=== PATIENT | female | born 1970 | race Caucasian/White ===

== ENCOUNTER 2020-09-12 10:08 | Inpatient (IN) ==
--- NOTE | 2020-09-12 10:27 | Emergency Department Note ---
History of Present Illness General Chief Complaint: Mental Health Evaluation Stated Complaint: OVERDOSE Time Seen by Provider: 09/12/20 10:12 History of Present Illness Provider Complaint: + intentional overdose Time: 07:00 Timing confirmed by: + family member and + EMS HPI Narrative: 50-year-old female presents emergency department for overdose. Patient states she tried to overdose to try to kill her self. She tried to overdose at 7 AM. Patient tried to take in 2 entire bottles of her Topamax 25 mg and ziprasidone 20 mg. The one bottle of Topamax 25 mg was filled on July 30, 2020 had 90 tablets in the second bottle had 30 tablets and was filled on June 02 2020. She also tried to overdose by taking her ziprasidone 20 mg which was filled on August 27 and originally had 30 tablets. Patient states she is not sure how many tablets were in any of the pill bottles. Patient states she tried to overdose because she has been feeling depressed because she has been under a lot of stress due to her financial troubles. Patient states she is a gambling addict and has been gambling again and is under a lot of financial stress. Patient denies any access to any guns or firearms. She denies any drugs or alcohol. She denies take any Tylenol or salicylates. She denies any chance of being . Mother is at bedside states the patient has a long history of depression and suicide attempts the last one being when she was 15 and tried to overdose. Patient does have a psychiatrist but has never had any inpatient treatment for psychiatric conditions. Substance Ingested topimax: Strength of Substance: 25 Time of Ingestion: 07:00 ziprasidone: Strength of Substance: 20 Time of Ingestion: 07:00 Intent: suicide attempt Context: Intentional Overdose: depressed, prior psychiatric issues and financial issues Associated symptoms: depression Home Medications Medication Instructions Recorded Confirmed Type dextroamphetamine-amphetamine 20 mg PO TID 06/24/19 09/12/20 History levothyroxine [Synthroid] 75 mcg PO DAILYBB 09/12/20 09/12/20 History lithium carbonate 150 mg PO BID 09/12/20 09/12/20 History lithium carbonate 600 mg PO BID 09/12/20 09/12/20 History metformin 1,000 mg PO BID 09/12/20 09/12/20 History topiramate [Topamax] 25 mg PO DAILY 09/12/20 09/12/20 History ziprasidone HCl [Geodon] 20 mg PO DAILY 09/12/20 09/12/20 History Allergies Allergy/AdvReac Type Severity Reaction Status Date / Time No Known Allergies Allergy Unverified 09/12/20 11:27 Past Med/Surg History Medical History Exercise-induced asthma No pertinent family history Severe depression Tracheal stenosis Surgical History No pertinent past surgical history Social History Smoking Status: Never smoker marital status: Single Current Living Situation: Alone current occupational status: unemployed Feels Safe at Home: No Review of Systems A total of 10 systems reviewed and were otherwise negative Physical Exam Physical Exam: Physical Exam GENERAL: She is oriented to person, place, and time. She appears well-developed and well-nourished. She does not appear distressed. HENT: Exam performed. -Head: Normocephalic and atraumatic. -Right Ear: External ear normal. No mastoid tenderness. -Left Ear: External ear normal. No mastoid tenderness. -Mouth/Throat: The oropharynx is clear and moist. No trismus in the jaw. No dental abscesses or uvula swelling. No oropharyngeal exudate or tonsillar abscesses. EYES: Conjunctivae and EOM are normal. Pupils are equal, round, and reactive to light. Right eye exhibits no discharge. Left eye exhibits no discharge. No scleral icterus. NECK: Normal range of motion. Neck supple. No JVD present. No spinous process tenderness present. No carotid bruit present. No rigidity. No tracheal deviation and normal range of motion present. No Brudzinski's sign and no Kernig's sign noted. CV: Normal rate, regular rhythm, normal heart sounds and intact distal pulses. There is no peripheral edema. Palpable radial pulses bue. PULM/CHEST: Effort normal and breath sounds normal. No respiratory distress. No stridor. She has no wheezes. She has no rales. -Chest Wall: She exhibits no tenderness. ABD: The abdomen is soft. Bowel sounds are normal. She has no distension. No mass is present. There is no tenderness. There is no rebound, no guarding, no Terrell's sign and no tenderness at McBurney's point. Rovsig negative MUSC/SKEL: Normal range of motion. There is no peripheral edema, tenderness or deformity. LYMPH: No cervical adenopathy. NEURO: She is alert and oriented to person, place, and time. She has normal strength. No cranial nerve deficit or sensory deficit. Coordination and gait normal. GCS eye subscore is 4. GCS verbal subscore is 5. GCS motor subscore is 6. Cerebellar tests wnl. SKIN: Skin is warm and dry. She is not diaphoretic. PSYCH: Patient is depressed and suicidal. Course Course 1012: The patient was evaluated in room A4. A complete history and physical exam was performed 1129: Spoke with Kylah from [facility]. She recommends checking magnesium level and states the patient could experience seizures. Seizure precautions placed. 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 1204: Vital signs stable. Magnesium Tylenol and salicylate within normal limits. Potassium will be low place. Patient placed in observation at this time. 1744: Vital signs stable. Patient accepted to 3 S. Medical Decision Making Laboratory Data Result diagrams: 09/12/20 10:38 09/12/20 10:38 ECG Data Indication: toxicologic Rate (beats per minute): 69 Rhythm: normal sinus Findings: no ST depression, no ST elevation and no prolonged QT MDM Narrative Observation note Indication: Psych eval/placement Patient, with severe depsression was first seen at 1012 hrs and the observation time began at 1204 hrs and was necessary in order to have psych evaluation completed . Upon re-evaluation, 5 hours and 40 minutes of observation revealed that the patient should be admitted to . Disposition date and time September 12, 2020 1744. Impression & Plan Suicide attempt, Overdose, Acute hypokalemia Discharge Plan Visit Data Chief Complaint: Mental Health Evaluation Stated Complaint: OVERDOSE ED Provider: Frandy Downs Discharge Problem: Suicide attempt, Overdose, Acute hypokalemia Forms Stand Alone Forms: [facility], Suicide Prevention Resources Prescriptions Prescriptions: No Action dextroamphetamine-amphetamine 20 mg tablet 20 mg PO TID RF: 0 topiramate [Topamax] 25 mg tablet 25 mg PO DAILY RF: 0 lithium carbonate 150 mg capsule 150 mg PO BID RF: 0 levothyroxine [Synthroid] 75 mcg tablet 75 mcg PO DAILYBB RF: 0 ziprasidone HCl [Geodon] 20 mg capsule 20 mg PO DAILY RF: 0 lithium carbonate 600 mg capsule 600 mg PO BID RF: 0 metformin 1,000 mg tablet 1,000 mg PO BID RF: 0 Referrals Referrals: Rita Astorga PA-C [Primary Care Provider] - Discharge Problem: Overdose Qualifiers: Encounter type: initial encounter Injury intent: undetermined intent Qualified Code(s): T50.904A - Poisoning by unspecified drugs, medicaments and biological substances, undetermined, initial encounter
[2020-09-12 10:35] LABS: Appearance Urine Clear (Clear); Bilirubin Urine Negative (Negative); Blood Urine Negative (Negative); Color Urine Yellow; Glucose Urine UA Negative (Negative); Ketones Urine Negative (Negative); Leukocyte Esterase Urine Negative (Negative); Nitrite Urine Negative (Negative); Protein Urine Negative (Negative); Specific Gravity Urine 1.007 (1.000-1.030); Urobilinogen Urine Negative (Negative); pH Urine >= 9.0 (4.5-7.5)
[2020-09-12 10:44] LABS: Pregnancy Test, Urine Negative (Negative)
[2020-09-12 10:57] LABS: Basophils # (auto) 0.04 K/uL (0-0.2); Basophils % (auto) 0.7 %; Eosinophils # (auto) 0.11 K/uL (0-0.5); Eosinophils % (auto) 1.8 %; Hematocrit (blood only) 30.5 % (37-47); Hemoglobin 9.7 g/dL (12.0-16.0); Immature Granulocytes # (auto) 0.01 K/uL (0.00-0.02); Immature Granulocytes % (auto) 0.2 %; Lymphocytes # (auto) 1.62 K/uL (1.2-3.4); Mean Corpuscular Hemoglobin 27.7 pg (25-34); Mean Corpuscular Hgb Conc 31.8 g/dL (32-36); Mean Corpuscular Volume 87.1 fL (80-100); Mean Platelet Volume 9.9 fL (7.4-10.4); Monocytes # (auto) 0.69 K/uL (0.11-0.59); Monocytes % (auto) 11.5 %; Neutrophils # (auto) 3.53 K/uL (1.4-6.5); Neutrophils % (auto) 58.8 %; Platelet Count 319 K/uL (130-400); RDW Coefficient of Variation 16.7 % (11.5-14.5); RDW Standard Deviation 53.5 fL (36.4-46.3)
[2020-09-12 11:00] LABS: Amphetamines+Metham, Urine Pos (Neg); Barbiturates, Urine Neg (Neg); Benzodiazepine, Urine Neg (Neg); Cocaine, Urine Neg (Neg); MDMA (Ecstacy), Urine Neg (Neg); Methadone, Urine Neg (Neg); Opiate, Urine Neg (Neg); Phencyclidine, Urine Neg (Neg)
[2020-09-12 11:16] LABS: Albumin Level 2.8 gm/dl (3.4-5.0); BUN Creatinine Ratio 17.8 (10-20); Calcium 8.1 mg/dl (8.5-10.1); Creatinine Clr Calc Pharmacy 116.4 ml/min; Est GFR (African American) 125.4 ml/min; Est GFR (Non-African American) 108.2 ml/min; Potassium 3.3 mmol/L (3.5-5.1)
[2020-09-12 11:27] LABS: Albumin Globulin Ratio 0.8 (0.9-2); Bilirubin,Total 0.3 mg/dl (0.2-1); Globulin 3.7 gm/dl (2.5-4.0); Thyroid Stimulating Hormone 5.52 uIu/ml (0.300-4.500); Total Protein 6.5 gm/dl (6.4-8.2)
[2020-09-12 11:39] LABS: Acetaminophen < 2 ug/ml (10-30); Salicylate < 1.7 mg/dl (2.8-20)
[2020-09-12 11:40] LABS: T4 Free Thyroxine 1.06 ng/dl (0.8-1.6)
[2020-09-12] MEDS ORDERED: POTASSIUM CHLORIDE 10 MEQ TABCR PO STA (12:05)
[2020-09-12] MEDS ORDERED: BISMUTH SUBSALICYLATE LIQD 236 ML PO PRN (18:51)
[2020-09-12] MEDS ORDERED: ALUMINUM/MAGNESIUM SUSP 30 ML UDC PO PRN (18:51)
[2020-09-12] MEDS ORDERED: MAGNESIUM HYDROXIDE SUSP 30 ML UDC PO PRN (18:51)
[2020-09-12] MEDS ORDERED: SODIUM CHLORIDE 0.65% NA SOLN 45 ML (OCEAN) PRN (18:51)
[2020-09-12] MEDS ORDERED: ACETAMINOPHEN 325 MG TAB PO PRN (18:51)
[2020-09-12] MEDS ORDERED: hydrOXYzine HCl 25 MG TAB PO PRN (18:51)
[2020-09-12] MEDS ORDERED: diazePAM 5 MG TABLET PO PRN (18:55)
--- NOTE | 2020-09-12 21:07 | Electrocardiogram Report ---
Test Reason : Blood Pressure : / mmHG Vent. Rate : 069 BPM Atrial Rate : 069 BPM P-R Int : 170 ms QRS Dur : 090 ms QT Int : 454 ms P-R-T Axes : 044 -05 021 degrees QTc Int : 486 ms Normal sinus rhythm Moderate voltage criteria for LVH, may be normal variant Nonspecific T wave abnormality Prolonged QT Abnormal ECG No previous ECGs available Confirmed by Tai Colin ([id number]) on 09/12/2020 9:06:42 PM Referred By: REFERRED SELF Confirmed By:Isaak Colin
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
[2020-09-13] MEDS: LEVOTHYROXINE SODIUM 75 MCG TABLET PO SCH (12:39)
[2020-09-13] MEDS: LITHIUM CARBONATE 300 MG TAB PO SCH ×4 (12:40→21:10)
[2020-09-13] MEDS: metFORMIN HCL 500 MG TAB PO SCH (17:32)
[2020-09-13] MEDS ORDERED: LITHIUM CARBONATE 300 MG TAB PO SCH ×2 (21:00)
[2020-09-13] MEDS: hydrOXYzine HCl 25 MG TAB PO PRN (21:12)
[2020-09-14] MEDS: hydrOXYzine HCl 25 MG TAB PO PRN (02:36)
[2020-09-14] MEDS ORDERED: LEVOTHYROXINE SODIUM 75 MCG TABLET PO SCH (08:00)
[2020-09-14] MEDS: LEVOTHYROXINE SODIUM 75 MCG TABLET PO SCH (08:06)
[2020-09-14] MEDS: LITHIUM CARBONATE 300 MG TAB PO SCH ×4 (08:39→20:36)
[2020-09-14] MEDS: metFORMIN HCL 500 MG TAB PO SCH ×2 (08:40→17:27)
[2020-09-14 11:31] LABS: Amphetamine Urine, Confirm 2060 ng/mL (<250); Methamphetamine, Ur Confirm NEGATIVE ng/mL (<250)
--- NOTE | 2020-09-14 13:48 | Psychiatric Progress Note ---
Date of Service September 14, 2020 Impression / Recommendations Impression This is a 50-year-old woman presenting following a suicide attempt. Although the patient carries a diagnosis of bipolar disorder, her history as well as current status are not indicative of such. I believe that this patient has a mood disorder with significant mood lability that was worsened by amphetamine use. Diagnosis for now will be MDD. Patient does have a history of treatment resistance, thus justifying uses of medications such as antipsychotics as well as lithium and other mood stabilizers. (1) Major depressive disorder with current active episode: The patient was admitted to the [facility] ([facility] unit) on every 15 minute checks (behavioral with suicide precautions for safety. The patient will participate in group, recreational, and milieu therapies and will be offered additional individual and family sessions as clinically appropriate. 09/14/2020atient to continue on lithium 700 mg p.o. twice daily. Plan to do a level in a couple of days. 09/13/2020atient's Adderall, Topamax, Geodon will be discontinued. Patient will be restarted on lithium as it has been shown to be effective for preventing suicide. Will reconsider use of antidepressant as patient begins to stabilize. Inventory Assets Strengths: Supportive family Needs: Insight Risk Factors Assessment Male: No : No Do You Have Access To A Gun?: No Health Problems: No Mental Health Diagnoses: Yes Substance Use Disorders: No Previous Attempt: Yes Family History of Suicide: No Previous Psychiatric Hospitalization: No Hopelessness: No Protective Factors Assessment : No Responsible for Young Children: No Employed: No Stable Relationships: Yes Supportive Family: Yes Interval History Chief Complaint "I'm tired". Review of Systems Sleep Information Total Hours of Sleep: 7.5 Sleep Comments: Pt verbalized she did not sleep well and that Vistaril PRN was ineffective. Patient had appeared to sleep well though before and after PRN administration. Meal Information Percent Meal Consumed - Breakfast: 85 Percent Meal Consumed - Lunch: 95 Percent Meal Consumed - Dinner: 75 Subjective Subjective Patient was seen & assessed and interval progress reviewed with treatment team nursing and social work Patient reports feeling tired today, which she attributes to Adderall withdrawal. Denies side effects of lithium medication. IS able to eat meals without issue. Does report some difficulty sleeping last night. Overall interacting appropriately with peers. I spent 30 minutes with the patient, 50% of which was dedicated to counselling and coordination of care. Physical Exam Psychiatric Orientation: alert and oriented x 3 Apperance: appropriately groomed Eye Contact: + fair eye contact Motor Behavior: no abnormal motor movements Speech: normal rate/rhythm/volume of speech Affect: + depressed affect and + tearful affect Mood: + depressed mood Thought Process: linear/logical thought process Thought Content: reality based without delusions Suicidal Thoughts: + reports suicidal thoughts Homicidal Thoughts: + reports homicidal thoughts Hallucinations: no auditory hallucinations and no gustatory hallucinations Cognition: remote memory grossly intact Estimated Intelligence: consistent with education level Insight: + poor insight Judgement: + fair judgement Vital Signs (Past 24 Hours) Last Vital Signs Temp 36.4 C 09/14/20 07:07 Pulse 88 09/14/20 07:07 Resp 16 09/14/20 07:07 BP 121/75 09/14/20 07:07 Pulse Ox 100 09/12/20 19:51 Results & Data ([facility]) Laboratory Results Laboratory Results - last 24 hr 09/12/20 09/12/20 10:20 20:33 POC Ur Test Cancelled U Amphetamines Confirm 2059 H U Methamphetamin Confrm NEGATIVE Drug Screen Comment SEE NOTE Current Inpatient Medications Current Inpatient Medications: Current Inpatient Medications Acetaminophen (Acetaminophen 325 Mg Tab) 650 mg PO Q4H PRN PRN Reason: Headache or Minor Fever Stop: 10/12/20 18:50 Al Hydrox/Mg Hydrox/Simethicone (Aluminum/Magnesium Susp 30 Ml Udc) 30 ml PO Q4H PRN PRN Reason: GI Upset Stop: 10/12/20 18:50 Bismuth Subsalicylate (Bismuth Subsalicylate Liqd 236 Ml) 15 ml PO PRN PRN PRN Reason: Loose Stool Stop: 10/12/20 18:50 Hydroxyzine HCl (Hydroxyzine Hcl 25 Mg Tab) 50 mg PO HSZ PRN PRN Reason: Insomnia Stop: 10/12/20 18:50 Last Admin: 09/14/20 02:36 Dose: 50 mg Documented by: Hydroxyzine HCl (Hydroxyzine Hcl 25 Mg Tab) 25 mg PO Q4H PRN PRN Reason: Anxiety Stop: 10/12/20 18:50 Levothyroxine Sodium (Levothyroxine Sodium 75 Mcg Tablet) 75 mcg PO DAILYBB ROCKY Stop: 10/13/20 10:59 Last Admin: 09/14/20 08:06 Dose: 75 mcg Documented by: Avimor Carbonate (Avimor Carbonate 300 Mg Tab) 150 mg PO BID ROCKY Stop: 10/13/20 10:59 Last Admin: 09/14/20 08:39 Dose: 150 mg Documented by: Avimor Carbonate (Avimor Carbonate 300 Mg Tab) 600 mg PO BID ROCKY Stop: 10/13/20 10:59 Last Admin: 09/14/20 08:39 Dose: 600 mg Documented by: Magnesium Hydroxide (Magnesium Hydroxide Susp 30 Ml Udc) 30 ml PO DAILY PRN PRN Reason: Constipation Stop: 10/12/20 18:50 Metformin HCl (Metformin Hcl 500 Mg Tab) 1,000 mg PO [facility]IDM [facility] Stop: 10/13/20 17:44 Last Admin: 09/14/20 08:40 Dose: 1,000 mg Documented by: Sodium Chloride (Sodium Chloride 0.65% Na Soln 45 Ml ([place])) 1 - 2 sprays NA PRN PRN PRN Reason: Nasal Dryness/Congestion Stop: 10/12/20 18:50 Mental Health & Subst Abuse Tx Therapist Name of Therapist: None Computer Aided Design Technician Name of Computer Aided Design Technician: Adrián Hi Post Discharge Appointments Primary Care Physician Name Of Family Doctor: None Contact Information Discharge Discharge Address: [address] [place] [address] (1) Major depressive disorder with current active episode Major depression recurrence: recurrent Major depression episode severity: severe Psychotic features: without psychotic features Qualified Code(s): F33.2 - Major depressive disorder, recurrent severe without psychotic features
[2020-09-15] MEDS: hydrOXYzine HCl 25 MG TAB PO PRN ×2 (00:44→02:52)
[2020-09-15] MEDS: LEVOTHYROXINE SODIUM 75 MCG TABLET PO SCH (08:50)
[2020-09-15] MEDS: LITHIUM CARBONATE 300 MG TAB PO SCH ×4 (08:50→20:39)
[2020-09-15] MEDS: metFORMIN HCL 500 MG TAB PO SCH ×2 (08:50→17:13)
--- NOTE | 2020-09-15 09:56 | Psychiatric Progress Note ---
Date of Service September 15, 2020 Impression / Recommendations Impression This is a 50-year-old woman presenting following a suicide attempt. Although the patient carries a diagnosis of bipolar disorder, her history as well as current status are not indicative of such. I believe that this patient has a mood disorder with significant mood lability that was worsened by amphetamine use. Diagnosis for now will be MDD. Patient does have a history of treatment resistance, thus justifying uses of medications such as antipsychotics as well as lithium and other mood stabilizers. (1) Major depressive disorder with current active episode: The patient was admitted to the [facility] ([facility] mental health unit) on every 15 minute checks (behavioral with suicide precautions for safety. The patient will participate in group, recreational, and milieu therapies and will be offered additional individual and family sessions as clinically appropriate. 09/15/2020atient continues on lithium 750 p.o. twice daily. We will plan to do a level tomorrow morning. 09/14/2020atient to continue on lithium 750 mg p.o. twice daily. Plan to do a level in a couple of days. 09/13/2020atient's Adderall, Topamax, Geodon will be discontinued. Patient will be restarted on lithium as it has been shown to be effective for preventing suicide. Will reconsider use of antidepressant as patient begins to stabilize. Inventory Assets Strengths: Supportive family Needs: Insight Risk Factors Assessment Male: No : No Do You Have Access To A Gun?: No Health Problems: No Mental Health Diagnoses: Yes Substance Use Disorders: No Previous Attempt: Yes Family History of Suicide: No Previous Psychiatric Hospitalization: No Hopelessness: No Protective Factors Assessment : No Responsible for Young Children: No Employed: No Stable Relationships: Yes Supportive Family: Yes Interval History Chief Complaint "I did not get any sleep because you did not give any medication to sleep. I need my Adderall.". Review of Systems Sleep Information Total Hours of Sleep: 5.5 Sleep Comments: Pt requested/received PRN Vistaril x 2 last night. She verbalized Vistaril was ineffective for her but appeared to sleep well prior to and shortly after receiving the PRN medication. Please see nurse's note. Meal Information Percent Meal Consumed - Breakfast: 75 Percent Meal Consumed - Lunch: 95 Percent Meal Consumed - Dinner: 70 Subjective Subjective Patient was seen & assessed and interval progress reviewed with treatment team nursing and social work. Patient continues to state that she requires Adderall. She will often state that it will help her sleep as well as prevent her from having restless leg syndrome. She was explained that none of her rationale makes any sense, and that in fact Adderall is known to cause insomnia as well as worsen restless leg syndrome. Patient with very poor insight regarding Adderall administration, continues to be irritable when discussing. Blood pressure is high today, will continue to monitor. Is attending groups and eating meals without issue. Requested medications for sleeping tonight. Was informed that she would be provided with as needed Seroquel. I spent 30 minutes with the patient, 50% of which was dedicated to counselling and coordination of care. Physical Exam Psychiatric Orientation: alert and oriented x 3 Apperance: appropriately groomed Eye Contact: + fair eye contact Motor Behavior: no abnormal motor movements Speech: normal rate/rhythm/volume of speech Affect: + depressed affect and + tearful affect Mood: + depressed mood Thought Process: linear/logical thought process Thought Content: reality based without delusions Suicidal Thoughts: + reports suicidal thoughts Homicidal Thoughts: + reports homicidal thoughts Hallucinations: no auditory hallucinations and no gustatory hallucinations Cognition: remote memory grossly intact Estimated Intelligence: consistent with education level Insight: + poor insight Judgement: + fair judgement Vital Signs (Past 24 Hours) Last Vital Signs Temp 36.7 C 09/15/20 06:40 Pulse 84 09/15/20 06:42 Resp 16 09/15/20 06:40 BP 150/99 H 09/15/20 06:42 Pulse Ox 100 09/12/20 19:51 Results & Data ([facility]) Laboratory Results Laboratory Results - last 24 hr 09/12/20 09/12/20 10:20 20:33 POC Ur Test Cancelled U Amphetamines Confirm 2059 H U Methamphetamin Confrm NEGATIVE Drug Screen Comment SEE NOTE Current Inpatient Medications Current Inpatient Medications: Current Inpatient Medications Acetaminophen (Acetaminophen 325 Mg Tab) 650 mg PO Q4H PRN PRN Reason: Headache or Minor Fever Stop: 10/12/20 18:50 Al Hydrox/Mg Hydrox/Simethicone (Aluminum/Magnesium Susp 30 Ml Udc) 30 ml PO Q4H PRN PRN Reason: GI Upset Stop: 10/12/20 18:50 Bismuth Subsalicylate (Bismuth Subsalicylate Liqd 236 Ml) 15 ml PO PRN PRN PRN Reason: Loose Stool Stop: 10/12/20 18:50 Hydroxyzine HCl (Hydroxyzine Hcl 25 Mg Tab) 50 mg PO HSZ PRN PRN Reason: Insomnia Stop: 10/12/20 18:50 Last Admin: 09/15/20 02:52 Dose: 50 mg Documented by: Hydroxyzine HCl (Hydroxyzine Hcl 25 Mg Tab) 25 mg PO Q4H PRN PRN Reason: Anxiety Stop: 10/12/20 18:50 Levothyroxine Sodium (Levothyroxine Sodium 75 Mcg Tablet) 75 mcg PO DAILYBB ROCKY Stop: 10/13/20 10:59 Last Admin: 09/15/20 08:50 Dose: 75 mcg Documented by: Ulmer Carbonate (Ulmer Carbonate 300 Mg Tab) 150 mg PO BID [facility] Stop: 10/13/20 10:59 Last Admin: 09/15/20 08:50 Dose: 150 mg Documented by: Ulmer Carbonate (Ulmer Carbonate 300 Mg Tab) 600 mg PO BID ROCKY Stop: 10/13/20 10:59 Last Admin: 09/15/20 08:50 Dose: 600 mg Documented by: Magnesium Hydroxide (Magnesium Hydroxide Susp 30 Ml Udc) 30 ml PO DAILY PRN PRN Reason: Constipation Stop: 10/12/20 18:50 Metformin HCl (Metformin Hcl 500 Mg Tab) 1,000 mg PO BIDM [facility] Stop: 10/13/20 17:44 Last Admin: 09/15/20 08:50 Dose: 1,000 mg Documented by: Sodium Chloride (Sodium Chloride 0.65% Na Soln 45 Ml ([place])) 1 - 2 sprays NA PRN PRN PRN Reason: Nasal Dryness/Congestion Stop: 10/12/20 18:50 Mental Health & Subst Abuse Tx Psychiatrist Name of Psychiatrist: Crystal Psychiatrist's Date of Appointment with Psychiatrist: 09/22/20 Time of Appointment with Psychiatrist: 1pm Psychiatric Appointment Comment: [address] [place] [address] Therapist Name of Therapist: None Customer Service Specialist Name of Customer Service Specialist: Adrián Hi Post Discharge Appointments Primary Care Physician Name Of Family Doctor: None Contact Information Discharge Discharge Address: [address] [place], [place] [address] (1) Major depressive disorder with current active episode Major depression recurrence: recurrent Major depression episode severity: severe Psychotic features: without psychotic features Qualified Code(s): F33.2 - Major depressive disorder, recurrent severe without psychotic features
--- NOTE | 2020-09-15 16:17 | Communication Note ---
Date of Service: September 15, 2020 Patient given MNPR due to irritability as well as GI distress. Will reconsider need on daily baisis.
[2020-09-15] MEDS: QUEtiapine FUMARATE 25 MG TABLET PO SCH (20:38)
[2020-09-16] MEDS: LITHIUM CARBONATE 300 MG TAB PO SCH ×2 (08:15)
[2020-09-16] MEDS: metFORMIN HCL 500 MG TAB PO SCH ×2 (08:15→17:31)
[2020-09-16] MEDS: LEVOTHYROXINE SODIUM 75 MCG TABLET PO SCH (08:15)
[2020-09-16] MEDS ORDERED: LORazepam 1 MG TAB PO STA (09:09)
--- NOTE | 2020-09-16 11:04 | Psychiatric Progress Note ---
Date of Service September 16, 2020 Impression / Recommendations Impression This is a 50-year-old woman presenting following a suicide attempt. Although the patient carries a diagnosis of bipolar disorder, her history as well as current status are not indicative of such. I believe that this patient has a mood disorder with significant mood lability that was worsened by amphetamine use. Diagnosis for now will be MDD. Patient does have a history of treatment resistance, thus justifying uses of medications such as antipsychotics as well as lithium and other mood stabilizers. (1) Major depressive disorder with current active episode: The patient was admitted to the [facility] ([facility]) on every 15 minute checks (behavioral with suicide precautions for safety. The patient will participate in group, recreational, and milieu therapies and will be offered additional individual and family sessions as clinically appropriate. 09/16/2020atient appears to be making incremental progress. Will hold lithium dose tonight and redraw level tomorrow morning. We will consider antidepressant dose tomorrow as well. 09/15/2020atient continues on lithium 750 p.o. twice daily. We will plan to do a level tomorrow morning. 09/14/2020atient to continue on lithium 750 mg p.o. twice daily. Plan to do a level in a couple of days. 09/13/2020atient's Adderall, Topamax, Geodon will be discontinued. Patient will be restarted on lithium as it has been shown to be effective for preventing suicide. Will reconsider use of antidepressant as patient begins to stabilize. Inventory Assets Strengths: Supportive family Needs: Insight Risk Factors Assessment Male: No : No Do You Have Access To A Gun?: No Health Problems: No Mental Health Diagnoses: Yes Substance Use Disorders: No Previous Attempt: Yes Family History of Suicide: No Previous Psychiatric Hospitalization: No Hopelessness: No Protective Factors Assessment : No Responsible for Young Children: No Employed: No Stable Relationships: Yes Supportive Family: Yes Interval History Chief Complaint "I am okay today". Review of Systems Sleep Information Total Hours of Sleep: 6 Sleep Comments: pt given vistaril per rn. pt on q-15 minute checks Meal Information Percent Meal Consumed - Breakfast: 75 Percent Meal Consumed - Lunch: 15 Percent Meal Consumed - Dinner: 50 Subjective Subjective Patient was seen & assessed and interval progress reviewed with treatment team nursing and social work Patient is eating her meals well. Reports having a bowel movement and is feeling better due to it. Patient states that she slept better on the Seroquel last night which also helped with her restless leg syndrome. Patient's lithium level was slightly elevated today at 1.4. Her evening dose will be held and a another level be drawn tomorrow to make sure patient is appropriately clearing. We will decide dosage after tomorrow's level. Regarding her mood, patient reports feeling better. She attributes some of this to the groups as well as getting some meaningful rest. She is compliant with medications and eating her meals without issue. She is interacting appropriate with peers and participating meaningfully in group therapy. Physical Exam Psychiatric Orientation: alert and oriented x 3 Apperance: appropriately groomed Eye Contact: + fair eye contact Motor Behavior: no abnormal motor movements Speech: normal rate/rhythm/volume of speech Affect: + depressed affect and + tearful affect Mood: + depressed mood Thought Process: linear/logical thought process Thought Content: reality based without delusions Suicidal Thoughts: + reports suicidal thoughts Homicidal Thoughts: + reports homicidal thoughts Hallucinations: no auditory hallucinations and no gustatory hallucinations Cognition: remote memory grossly intact Estimated Intelligence: consistent with education level Insight: + poor insight Judgement: + fair judgement Vital Signs (Past 24 Hours) Last Vital Signs Temp 36.8 C 09/16/20 06:32 Pulse 75 09/16/20 06:33 Resp 16 09/16/20 06:32 BP 139/86 09/16/20 06:33 Pulse Ox 100 09/12/20 19:51 Results & Data ([facility]) Laboratory Results Laboratory Results - last 24 hr 09/16/20 07:57 [place] 1.4 H Current Inpatient Medications Current Inpatient Medications: Current Inpatient Medications Acetaminophen (Acetaminophen 325 Mg Tab) 650 mg PO Q4H PRN PRN Reason: Headache or Minor Fever Stop: 10/12/20 18:50 Al Hydrox/Mg Hydrox/Simethicone (Aluminum/Magnesium Susp 30 Ml Udc) 30 ml PO Q4H PRN PRN Reason: GI Upset Stop: 10/12/20 18:50 Bismuth Subsalicylate (Bismuth Subsalicylate Liqd 236 Ml) 15 ml PO PRN PRN PRN Reason: Loose Stool Stop: 10/12/20 18:50 Hydroxyzine HCl (Hydroxyzine Hcl 25 Mg Tab) 50 mg PO HSZ PRN PRN Reason: Insomnia Stop: 10/12/20 18:50 Last Admin: 09/15/20 02:52 Dose: 50 mg Documented by: Hydroxyzine HCl (Hydroxyzine Hcl 25 Mg Tab) 25 mg PO Q4H PRN PRN Reason: Anxiety Stop: 10/12/20 18:50 Levothyroxine Sodium (Levothyroxine Sodium 75 Mcg Tablet) 75 mcg PO DAILYBB ROCKY Stop: 10/13/20 10:59 Last Admin: 09/16/20 08:15 Dose: 75 mcg Documented by: Magnesium Hydroxide (Magnesium Hydroxide Susp 30 Ml Udc) 30 ml PO DAILY PRN PRN Reason: Constipation Stop: 10/12/20 18:50 Last Admin: 09/15/20 17:51 Dose: 30 ml Documented by: Metformin HCl (Metformin Hcl 500 Mg Tab) 1,000 mg PO BIDM ROCKY Stop: 10/13/20 17:44 Last Admin: 09/16/20 08:15 Dose: 1,000 mg Documented by: Quetiapine Fumarate (Quetiapine Fumarate 25 Mg Tablet) 50 mg PO HS ROCKY Stop: 10/15/20 21:59 Last Admin: 09/15/20 20:38 Dose: 50 mg Documented by: Sodium Chloride (Sodium Chloride 0.65% Na Soln 45 Ml ([place])) 1 - 2 sprays NA PRN PRN PRN Reason: Nasal Dryness/Congestion Stop: 10/12/20 18:50 Mental Health & Subst Abuse Tx Psychiatrist Name of Psychiatrist: Crystal Psychiatrist's Date of Appointment with Psychiatrist: 09/22/20 Time of Appointment with Psychiatrist: 1pm [facility] [id number] Release of Information: Obtained Therapist Name of Therapist: Dominic Menon Therapist's Date of Therapist Appointment: 09/29/20 Time of Therapist Appointment: 2pm [facility] [id number] Director Of Financial Reporting Name of Director Of Financial Reporting: Adrián Hi Post Discharge Appointments Primary Care Physician Name Of Family Doctor: Vicky Romero Primary Care Date of Appointment with PCP: 10/22/20 Time of Appointment with PCP: 2:40pm Provider Appointment Comment: [id number], [place] [address] Contact Information Discharge Discharge Address: [address] [place], [place] [address] (1) Major depressive disorder with current active episode Major depression recurrence: recurrent Major depression episode severity: severe Psychotic features: without psychotic features Qualified Code(s): F33.2 - Major depressive disorder, recurrent severe without psychotic features
[2020-09-16] MEDS: QUEtiapine FUMARATE 25 MG TABLET PO SCH (20:47)
[2020-09-17] MEDS: LEVOTHYROXINE SODIUM 75 MCG TABLET PO SCH (07:42)
[2020-09-17] MEDS: metFORMIN HCL 500 MG TAB PO SCH ×2 (07:43→17:15)
[2020-09-17 08:02] LABS: Basophils # (auto) 0.03 K/uL (0-0.2); Basophils % (auto) 0.5 %; Eosinophils # (auto) 0.21 K/uL (0-0.5); Eosinophils % (auto) 3.7 %; Hematocrit (blood only) 32.2 % (37-47); Hemoglobin 10.1 g/dL (12.0-16.0); Immature Granulocytes # (auto) 0.01 K/uL (0.00-0.02); Immature Granulocytes % (auto) 0.2 %; Lymphocytes # (auto) 1.32 K/uL (1.2-3.4); Lymphocytes % (auto) 23.2 %; Mean Corpuscular Hemoglobin 27.4 pg (25-34); Mean Corpuscular Hgb Conc 31.4 g/dL (32-36); Mean Corpuscular Volume 87.5 fL (80-100); Mean Platelet Volume 10.1 fL (7.4-10.4); Monocytes # (auto) 0.65 K/uL (0.11-0.59); Monocytes % (auto) 11.4 %; Neutrophils # (auto) 3.46 K/uL (1.4-6.5); Platelet Count 355 K/uL (130-400); RDW Coefficient of Variation 16.7 % (11.5-14.5); RDW Standard Deviation 53.7 fL (36.4-46.3); Red Blood Count 3.68 M/uL (4.2-5.4); White Blood Count 5.68 K/uL (4.8-10.8)
[2020-09-17 08:20] LABS: Albumin Level 2.7 gm/dl (3.4-5.0); BUN Creatinine Ratio 15.1 (10-20); Calcium 8.5 mg/dl (8.5-10.1); Creatinine Clr Calc Pharmacy 99.3 ml/min; Est GFR (Non-African American) 102.7 ml/min; Potassium 3.9 mmol/L (3.5-5.1)
[2020-09-17 08:23] LABS: Albumin Globulin Ratio 0.7 (0.9-2); Bilirubin,Total 0.3 mg/dl (0.2-1); Globulin 3.7 gm/dl (2.5-4.0); Total Protein 6.4 gm/dl (6.4-8.2)
[2020-09-17] MEDS ORDERED: LITHIUM CARBONATE 300 MG TAB PO SCH (09:00)
--- NOTE | 2020-09-17 14:41 | Psychiatric Progress Note ---
Date of Service September 17, 2020 Impression / Recommendations Impression This is a 50-year-old woman presenting following a suicide attempt. Although the patient carries a diagnosis of bipolar disorder, her history as well as current status are not indicative of such. I believe that this patient has a mood disorder with significant mood lability that was worsened by amphetamine use. Diagnosis for now will be MDD. Patient does have a history of treatment resistance, thus justifying uses of medications such as antipsychotics as well as lithium and other mood stabilizers. (1) Major depressive disorder with current active episode: The patient was admitted to the [facility] ([facility] mental health unit) on every 15 minute checks (behavioral with suicide precautions for safety. The patient will participate in group, recreational, and milieu therapies and will be offered additional individual and family sessions as clinically appropriate. 09/17/2020atient's mood seems to have stabilized although she is still somewhat depressed. Will augment with antidepressant Wellbutrin 150 mg XL every morning starting tomorrow morning. 09/16/2020atient appears to be making incremental progress. Will hold lithium dose tonight and redraw level tomorrow morning. We will consider antidepressant dose tomorrow as well. 09/15/2020atient continues on lithium 750 p.o. twice daily. We will plan to do a level tomorrow morning. 09/14/2020atient to continue on lithium 750 mg p.o. twice daily. Plan to do a level in a couple of days. 09/13/2020atient's Adderall, Topamax, Geodon will be discontinued. Patient will be restarted on lithium as it has been shown to be effective for preventing suicide. Will reconsider use of antidepressant as patient begins to stabilize. Inventory Assets Strengths: Supportive family Needs: Insight Risk Factors Assessment Male: No : No Do You Have Access To A Gun?: No Health Problems: No Mental Health Diagnoses: Yes Substance Use Disorders: No Previous Attempt: Yes Family History of Suicide: No Previous Psychiatric Hospitalization: No Hopelessness: No Protective Factors Assessment : No Responsible for Young Children: No Employed: No Stable Relationships: Yes Supportive Family: Yes Interval History Chief Complaint "I had a bad conversation". Review of Systems Sleep Information Total Hours of Sleep: 6.5 Sleep Comments: pt given vistaril per rn. pt on q-15 minute checks Meal Information Percent Meal Consumed - Breakfast: 50 Percent Meal Consumed - Lunch: 60 Percent Meal Consumed - Dinner: 50 Subjective Subjective Patient was seen & assessed and interval progress reviewed with treatment team nursing and social work Patient seen to be eating well and sleeping approximately 7 hours per night. Reports some benefit of the cervical medication. E. Lopez level now down to 1.1 in the therapeutic range patient was informed that her dosage will be lowered to 600 mg p.o. twice daily to which she is in agreement. Was also discussed the patient that we will start a antidepressant tomorrow to combat some of her low mood. Patient is interacting with peers well did not attend groups today. I spent 30 minutes with the patient, 50% of which was dedicated to counselling and coordination of care. Physical Exam Psychiatric Orientation: alert and oriented x 3 Apperance: appropriately groomed Eye Contact: + fair eye contact Motor Behavior: no abnormal motor movements Speech: normal rate/rhythm/volume of speech Affect: + depressed affect and + tearful affect Mood: + depressed mood Thought Process: linear/logical thought process Thought Content: reality based without delusions Suicidal Thoughts: + reports suicidal thoughts Homicidal Thoughts: + reports homicidal thoughts Hallucinations: no auditory hallucinations and no gustatory hallucinations Cognition: remote memory grossly intact Estimated Intelligence: consistent with education level Insight: + poor insight Judgement: + fair judgement Vital Signs (Past 24 Hours) Last Vital Signs Temp 36.9 C 09/17/20 06:40 Pulse 67 09/17/20 06:40 Resp 16 09/17/20 06:40 BP 119/84 09/17/20 06:40 Pulse Ox 100 09/12/20 19:51 Results & Data ([facility]) Laboratory Results Laboratory Results - last 24 hr 09/17/20 09/17/20 09/17/20 07:18 07:18 07:18 WBC 5.68 RBC 3.68 L Hgb 10.1 L Hct 32.2 L MCV 87.5 MCH 27.4 MCHC 31.4 L RDW Std Deviation 53.7 H RDW Coeff of Ronni 16.7 H Plt Count 355 MPV 10.1 Immature Gran % (Auto) 0.2 Neut % (Auto) 61.0 Lymph % (Auto) 23.2 [place] % (Auto) 11.4 Eos % (Auto) 3.7 Baso % (Auto) 0.5 Neut # (Auto) 3.46 Lymph # (Auto) 1.32 [place] # (Auto) 0.65 H Eos # (Auto) 0.21 Baso # (Auto) 0.03 Immature Gran # (Auto) 0.01 Sodium 139 Potassium 3.9 Chloride 112 H Carbon Dioxide 25 Anion Gap 3.0 BUN 10 Creatinine 0.68 Est Cr Clr Drug Dosing 99.3 Est GFR ( Amer) 119.0 Est GFR (Non-Af Amer) 102.7 BUN/Creatinine Ratio 15.1 Glucose 86 Calcium 8.5 Total Bilirubin 0.3 AST 14 L ALT 20 Alkaline Phosphatase 66 Total Protein 6.4 Albumin 2.7 L Globulin 3.7 Albumin/Globulin Ratio 0.7 L E. Lopez 1.1 Current Inpatient Medications Current Inpatient Medications: Current Inpatient Medications Acetaminophen (Acetaminophen 325 Mg Tab) 650 mg PO Q4H PRN PRN Reason: Headache or Minor Fever Stop: 10/12/20 18:50 Al Hydrox/Mg Hydrox/Simethicone (Aluminum/Magnesium Susp 30 Ml Udc) 30 ml PO Q4H PRN PRN Reason: GI Upset Stop: 10/12/20 18:50 Bismuth Subsalicylate (Bismuth Subsalicylate Liqd 236 Ml) 15 ml PO PRN PRN PRN Reason: Loose Stool Stop: 10/12/20 18:50 Hydroxyzine HCl (Hydroxyzine Hcl 25 Mg Tab) 50 mg PO HSZ PRN PRN Reason: Insomnia Stop: 10/12/20 18:50 Last Admin: 09/15/20 02:52 Dose: 50 mg Documented by: Hydroxyzine HCl (Hydroxyzine Hcl 25 Mg Tab) 25 mg PO Q4H PRN PRN Reason: Anxiety Stop: 10/12/20 18:50 Levothyroxine Sodium (Levothyroxine Sodium 75 Mcg Tablet) 75 mcg PO DAILYBB ROCKY Stop: 10/13/20 10:59 Last Admin: 09/17/20 07:42 Dose: 75 mcg Documented by: E. Lopez Carbonate (E. Lopez Carbonate 300 Mg Tab) 600 mg PO BID ROCKY Stop: 10/17/20 20:59 Magnesium Hydroxide (Magnesium Hydroxide Susp 30 Ml Udc) 30 ml PO DAILY PRN PRN Reason: Constipation Stop: 10/12/20 18:50 Last Admin: 09/15/20 17:51 Dose: 30 ml Documented by: Metformin HCl (Metformin Hcl 500 Mg Tab) 1,000 mg PO BIDM ROCKY Stop: 10/13/20 17:44 Last Admin: 09/17/20 07:43 Dose: 1,000 mg Documented by: Quetiapine Fumarate (Quetiapine Fumarate 25 Mg Tablet) 50 mg PO HS ROCKY Stop: 10/15/20 21:59 Last Admin: 09/16/20 20:47 Dose: 50 mg Documented by: Sodium Chloride (Sodium Chloride 0.65% Na Soln 45 Ml ([place])) 1 - 2 sprays NA PRN PRN PRN Reason: Nasal Dryness/Congestion Stop: 10/12/20 18:50 Mental Health & Subst Abuse Tx Psychiatrist Name of Psychiatrist: [facility] Psychiatrist's Date of Appointment with Psychiatrist: 09/22/20 Time of Appointment with Psychiatrist: 1pm Psychiatric Appointment Comment: [address] [place] [id number] Psychiatrist Release of Information: Obtained Therapist Name of Therapist: [facility] Darryn Menon Therapist's Date of Therapist Appointment: 09/29/20 Time of Therapist Appointment: 2pm Therapy Appointment Comment: [address] [place] [id number] Blanket Maker Name of Blanket Maker: Kayleigh Farrell Phone Number for Blanket Maker: [phone] Post Discharge Appointments Primary Care Physician Name Of Family Doctor: Vicky Romero Primary Care Date of Appointment with PCP: 10/22/20 Time of Appointment with PCP: 2:40pm Provider Appointment Comment: [id number], [address], [place] [address] Contact Information Discharge Discharge Address: [address] [place] [address] (1) Major depressive disorder with current active episode Major depression recurrence: recurrent Major depression episode severity: severe Psychotic features: without psychotic features Qualified Code(s): F33.2 - Major depressive disorder, recurrent severe without psychotic features
[2020-09-17] MEDS: LITHIUM CARBONATE 300 MG TAB PO SCH (21:47)
[2020-09-17] MEDS ORDERED: clonazePAM 0.5 MG TAB PO SCH (22:00)
[2020-09-18] MEDS: hydrOXYzine HCl 25 MG TAB PO PRN (01:00)
[2020-09-18] MEDS: metFORMIN HCL 500 MG TAB PO SCH ×2 (09:01→17:36)
[2020-09-18] MEDS: LITHIUM CARBONATE 300 MG TAB PO SCH ×2 (09:01→21:09)
[2020-09-18] MEDS: LEVOTHYROXINE SODIUM 75 MCG TABLET PO SCH (09:01)
[2020-09-18] MEDS: buPROPion XL 150 MG TABCR PO SCH (09:01)
--- NOTE | 2020-09-18 14:57 | Psychiatric Progress Note ---
Date of Service September 18, 2020 Impression / Recommendations Impression This is a 50-year-old woman presenting following a suicide attempt. Although the patient carries a diagnosis of bipolar disorder, her history as well as current status are not indicative of such. I believe that this patient has a mood disorder with significant mood lability that was worsened by amphetamine use. Diagnosis for now will be MDD. Patient does have a history of treatment resistance, thus justifying uses of medications such as antipsychotics as well as lithium and other mood stabilizers. (1) Major depressive disorder with current active episode: The patient was admitted to the [facility] ([facility] mental health unit) on every 15 minute checks (behavioral with suicide precautions for safety. The patient will participate in group, recreational, and milieu therapies and will be offered additional individual and family sessions as clinically appropriate. 09/18/2020will augment patient's regimen with 0.25 Klonopin p.o. twice daily, will reinitiate Seroquel 50 nightly for sleep and restless legs. 09/17/2020atient's mood seems to have stabilized although she is still somewhat depressed. Will augment with antidepressant Wellbutrin 150 mg XL every morning starting tomorrow morning. 09/16/2020atient appears to be making incremental progress. Will hold lithium dose tonight and redraw level tomorrow morning. We will consider antidepressant dose tomorrow as well. 09/15/2020atient continues on lithium 750 p.o. twice daily. We will plan to do a level tomorrow morning. 09/14/2020atient to continue on lithium 750 mg p.o. twice daily. Plan to do a level in a couple of days. 09/13/2020atient's Adderall, Topamax, Geodon will be discontinued. Patient will be restarted on lithium as it has been shown to be effective for preventing suicide. Will reconsider use of antidepressant as patient begins to stabilize. Inventory Assets Strengths: Supportive family Needs: Insight Risk Factors Assessment Male: No : No Do You Have Access To A Gun?: No Health Problems: No Mental Health Diagnoses: Yes Substance Use Disorders: No Previous Attempt: Yes Family History of Suicide: No Previous Psychiatric Hospitalization: No Hopelessness: No Protective Factors Assessment : No Responsible for Young Children: No Employed: No Stable Relationships: Yes Supportive Family: Yes Interval History Chief Complaint "I am okay today, but my restless legs probably last night". Review of Systems Sleep Information Total Hours of Sleep: 7 Sleep Comments: Pt appeared to sleep well after receiving PRN medication. Meal Information Percent Meal Consumed - Breakfast: 75 Percent Meal Consumed - Lunch: 85 Percent Meal Consumed - Dinner: 25 Subjective Subjective Patient was seen & assessed and interval progress reviewed with treatment team nursing and social work Patient is seen engaging in groups and interacting with peers. She is appropriate in her disposition. She is reporting some stability although stating that she feels quite depressed. Denies side effects of the Wellbutrin medication, does report some restless legs last night without her Seroquel dose. I spent 30 minutes with the patient, 50% of which was dedicated to counselling and coordination of care. Physical Exam Psychiatric Orientation: alert and oriented x 3 Apperance: appropriately groomed Eye Contact: + fair eye contact Motor Behavior: no abnormal motor movements Speech: normal rate/rhythm/volume of speech Affect: + depressed affect and + tearful affect Mood: + depressed mood Thought Process: linear/logical thought process Thought Content: reality based without delusions Suicidal Thoughts: + reports suicidal thoughts Homicidal Thoughts: + reports homicidal thoughts Hallucinations: no auditory hallucinations and no gustatory hallucinations Cognition: remote memory grossly intact Estimated Intelligence: consistent with education level Insight: + poor insight Judgement: + fair judgement Vital Signs (Past 24 Hours) Last Vital Signs Temp 36.4 C L 09/18/20 06:37 Pulse 71 09/18/20 06:38 Resp 16 09/18/20 06:37 BP 101/50 L 09/18/20 06:38 Pulse Ox 100 09/12/20 19:51 Results & Data ([facility]) Current Inpatient Medications Current Inpatient Medications: Current Inpatient Medications Acetaminophen (Acetaminophen 325 Mg Tab) 650 mg PO Q4H PRN PRN Reason: Headache or Minor Fever Stop: 10/12/20 18:50 Al Hydrox/Mg Hydrox/Simethicone (Aluminum/Magnesium Susp 30 Ml Udc) 30 ml PO Q4H PRN PRN Reason: GI Upset Stop: 10/12/20 18:50 Bismuth Subsalicylate (Bismuth Subsalicylate Liqd 236 Ml) 15 ml PO PRN PRN PRN Reason: Loose Stool Stop: 10/12/20 18:50 Bupropion HCl (Bupropion Xl 150 Mg Tabcr) 150 mg PO QAM ROCKY Stop: 10/18/20 08:59 Last Admin: 09/18/20 09:01 Dose: 150 mg Documented by: Clonazepam (Clonazepam 0.25 Mg Tab) 0.25 mg PO BID ROCKY Stop: 10/18/20 20:59 Hydroxyzine HCl (Hydroxyzine Hcl 25 Mg Tab) 50 mg PO HSZ PRN PRN Reason: Insomnia Stop: 10/12/20 18:50 Last Admin: 09/18/20 01:00 Dose: 50 mg Documented by: Hydroxyzine HCl (Hydroxyzine Hcl 25 Mg Tab) 25 mg PO Q4H PRN PRN Reason: Anxiety Stop: 10/12/20 18:50 Levothyroxine Sodium (Levothyroxine Sodium 75 Mcg Tablet) 75 mcg PO DAILYBB ROCKY Stop: 10/13/20 10:59 Last Admin: 09/18/20 09:01 Dose: 75 mcg Documented by: Gregory Carbonate (Gregory Carbonate 300 Mg Tab) 600 mg PO BID ROCKY Stop: 10/17/20 20:59 Last Admin: 09/18/20 09:01 Dose: 600 mg Documented by: Magnesium Hydroxide (Magnesium Hydroxide Susp 30 Ml Udc) 30 ml PO DAILY PRN PRN Reason: Constipation Stop: 10/12/20 18:50 Last Admin: 09/15/20 17:51 Dose: 30 ml Documented by: Metformin HCl (Metformin Hcl 500 Mg Tab) 1,000 mg PO BIDM ROCKY Stop: 10/13/20 17:44 Last Admin: 09/18/20 09:01 Dose: 1,000 mg Documented by: Miscellaneous (Metanx: Order Awaiting Action) 1 ea N/A QS ROCKY Stop: 10/18/20 15:59 Quetiapine Fumarate (Quetiapine Fumarate 25 Mg Tablet) 50 mg PO HS ROCKY Stop: 10/18/20 21:59 Sodium Chloride (Sodium Chloride 0.65% Na Soln 45 Ml ([place])) 1 - 2 sprays NA PRN PRN PRN Reason: Nasal Dryness/Congestion Stop: 10/12/20 18:50 Mental Health & Subst Abuse Tx Psychiatrist Name of Psychiatrist: [facility] Psychiatrist's Date of Appointment with Psychiatrist: 09/22/20 Time of Appointment with Psychiatrist: 1pm Psychiatric Appointment Comment: [address] [facility] [place] [address] Psychiatrist Release of Information: Obtained Therapist Name of Therapist: Crystal Menon Therapist's Date of Therapist Appointment: 09/29/20 Time of Therapist Appointment: 2pm Therapy Appointment Comment: [address] [place] [place] [address] Circulation Analyst Name of Circulation Analyst: Kayleigh Farrell Phone Number for Circulation Analyst: [phone] Post Discharge Appointments Primary Care Physician Name Of Family Doctor: Vicky Romero Primary Care Date of Appointment with PCP: 10/22/20 Time of Appointment with PCP: 2:40pm Provider Appointment Comment: [phone], [address], [place] [address] Contact Information Discharge Discharge Address: [address] [place] [address] (1) Major depressive disorder with current active episode Major depression recurrence: recurrent Major depression episode severity: severe Psychotic features: without psychotic features Qualified Code(s): F33.2 - Major depressive disorder, recurrent severe without psychotic features
[2020-09-18] MEDS: clonazePAM 0.25 MG TAB PO SCH (21:09)
[2020-09-18] MEDS: QUEtiapine FUMARATE 25 MG TABLET PO SCH (21:10)
[2020-09-19] MEDS: hydrOXYzine HCl 25 MG TAB PO PRN (02:06)
[2020-09-19] MEDS: metFORMIN HCL 500 MG TAB PO SCH ×2 (08:53→17:21)
[2020-09-19] MEDS: buPROPion XL 150 MG TABCR PO SCH (08:53)
[2020-09-19] MEDS: LEVOTHYROXINE SODIUM 75 MCG TABLET PO SCH (08:53)
[2020-09-19] MEDS: clonazePAM 0.25 MG TAB PO SCH ×2 (08:53→21:27)
[2020-09-19] MEDS: LITHIUM CARBONATE 300 MG TAB PO SCH ×2 (08:53→21:26)
[2020-09-19] MEDS: B6 PO SCH ×2 (09:04→21:28)
[2020-09-19] MEDS: LEVOMEFOLATE PO SCH ×2 (09:04→21:28)
[2020-09-19] MEDS: ALGAL OIL PO SCH ×2 (09:04→21:28)
[2020-09-19] MEDS: B12 PO SCH ×2 (09:04→21:28)
--- NOTE | 2020-09-19 11:58 | Psychiatric Progress Note ---
Date of Service September 19, 2020 Impression / Recommendations Impression This is a 50-year-old woman presenting following a suicide attempt. Although the patient carries a diagnosis of bipolar disorder, her history as well as current status are not indicative of such. I believe that this patient has a mood disorder with significant mood lability that was worsened by amphetamine use. Diagnosis for now will be MDD. Patient does have a history of treatment resistance, thus justifying uses of medications such as antipsychotics as well as lithium and other mood stabilizers. (1) Major depressive disorder with current active episode: The patient was admitted to the [facility] ([facility] mental health unit) on every 15 minute checks (behavioral with suicide precautions for safety. The patient will participate in group, recreational, and milieu therapies and will be offered additional individual and family sessions as clinically appropriate. 09/18/2020will augment patient's regimen with 0.25 Klonopin p.o. twice daily, will reinitiate Seroquel 50 nightly for sleep and restless legs. 09/17/2020atient's mood seems to have stabilized although she is still somewhat depressed. Will augment with antidepressant Wellbutrin 150 mg XL every morning starting tomorrow morning. 09/16/2020atient appears to be making incremental progress. Will hold lithium dose tonight and redraw level tomorrow morning. We will consider antidepressant dose tomorrow as well. 09/15/2020atient continues on lithium 750 p.o. twice daily. We will plan to do a level tomorrow morning. 09/14/2020atient to continue on lithium 750 mg p.o. twice daily. Plan to do a level in a couple of days. 09/13/2020atient's Adderall, Topamax, Geodon will be discontinued. Patient will be restarted on lithium as it has been shown to be effective for preventing suicide. Will reconsider use of antidepressant as patient begins to stabilize. Inventory Assets Strengths: Supportive family Needs: Insight Risk Factors Assessment Male: No : No Do You Have Access To A Gun?: No Health Problems: No Mental Health Diagnoses: Yes Substance Use Disorders: No Previous Attempt: Yes Family History of Suicide: No Previous Psychiatric Hospitalization: No Hopelessness: No Protective Factors Assessment : No Responsible for Young Children: No Employed: No Stable Relationships: Yes Supportive Family: Yes Interval History Chief Complaint "I think the medicine is okay". Review of Systems Sleep Information Total Hours of Sleep: 6.5 Sleep Comments: Pt appeared to sleep well after receiving PRN medication. Meal Information Percent Meal Consumed - Breakfast: 95 Percent Meal Consumed - Lunch: 85 Percent Meal Consumed - Dinner: 75 Subjective Subjective Patient was seen & assessed and interval progress reviewed with treatment team nursing and social work. Patient states that her mood is improving which she attributes to the medication. Denies any side effects. Does state that Pedro is making her little bit tired during the day but was reassured that this is something that she will become used to. Patient acknowledges her improvement and stability. She is seen eating well and sleeping well I spent 30 minutes with the patient, 50% of which was dedicated to counselling and coordination of care. Physical Exam Psychiatric Orientation: alert and oriented x 3 Apperance: appropriately groomed Eye Contact: + fair eye contact Motor Behavior: no abnormal motor movements Speech: normal rate/rhythm/volume of speech Affect: + depressed affect and + tearful affect Mood: + depressed mood Thought Process: linear/logical thought process Thought Content: reality based without delusions Suicidal Thoughts: + reports suicidal thoughts Homicidal Thoughts: + reports homicidal thoughts Hallucinations: no auditory hallucinations and no gustatory hallucinations Cognition: remote memory grossly intact Estimated Intelligence: consistent with education level Insight: + poor insight Judgement: + fair judgement Vital Signs (Past 24 Hours) Last Vital Signs Temp 36.7 C 09/19/20 06:37 Pulse 67 09/19/20 06:37 Resp 16 09/19/20 06:37 BP 125/85 09/19/20 06:38 Pulse Ox 100 09/12/20 19:51 Results & Data ([facility]) Current Inpatient Medications Current Inpatient Medications: Current Inpatient Medications Acetaminophen (Acetaminophen 325 Mg Tab) 650 mg PO Q4H PRN PRN Reason: Headache or Minor Fever Stop: 10/12/20 18:50 Al Hydrox/Mg Hydrox/Simethicone (Aluminum/Magnesium Susp 30 Ml Udc) 30 ml PO Q4H PRN PRN Reason: GI Upset Stop: 10/12/20 18:50 Bismuth Subsalicylate (Bismuth Subsalicylate Liqd 236 Ml) 15 ml PO PRN PRN PRN Reason: Loose Stool Stop: 10/12/20 18:50 Bupropion HCl (Bupropion Xl 150 Mg Tabcr) 150 mg PO QAM ROCKY Stop: 10/18/20 08:59 Last Admin: 09/19/20 08:53 Dose: 150 mg Documented by: Clonazepam (Clonazepam 0.25 Mg Tab) 0.25 mg PO BID ROCKY Stop: 10/18/20 20:59 Last Admin: 09/19/20 08:53 Dose: 0.25 mg Documented by: Hydroxyzine HCl (Hydroxyzine Hcl 25 Mg Tab) 50 mg PO HSZ PRN PRN Reason: Insomnia Stop: 10/12/20 18:50 Last Admin: 09/19/20 02:06 Dose: 50 mg Documented by: Hydroxyzine HCl (Hydroxyzine Hcl 25 Mg Tab) 25 mg PO Q4H PRN PRN Reason: Anxiety Stop: 10/12/20 18:50 Levomefolate/Algal Oil (Levomefolate/B6/B12/Algal Oil) 1 ea PO BID ROCKY Stop: 10/19/20 08:59 Last Admin: 09/19/20 09:04 Dose: 1 ea Documented by: Levothyroxine Sodium (Levothyroxine Sodium 75 Mcg Tablet) 75 mcg PO DAILYBB ROCKY Stop: 10/13/20 10:59 Last Admin: 09/19/20 08:53 Dose: 75 mcg Documented by: [place] Carbonate ([place] Carbonate 300 Mg Tab) 600 mg PO BID ROCKY Stop: 10/17/20 20:59 Last Admin: 09/19/20 08:53 Dose: 600 mg Documented by: Magnesium Hydroxide (Magnesium Hydroxide Susp 30 Ml Udc) 30 ml PO DAILY PRN PRN Reason: Constipation Stop: 10/12/20 18:50 Last Admin: 09/15/20 17:51 Dose: 30 ml Documented by: Metformin HCl (Metformin Hcl 500 Mg Tab) 1,000 mg PO BIDM ROCKY Stop: 10/13/20 17:44 Last Admin: 09/19/20 08:53 Dose: 1,000 mg Documented by: Quetiapine Fumarate (Quetiapine Fumarate 25 Mg Tablet) 50 mg PO HS ROCKY Stop: 10/18/20 21:59 Last Admin: 09/18/20 21:10 Dose: 50 mg Documented by: Sodium Chloride (Sodium Chloride 0.65% Na Soln 45 Ml ([place])) 1 - 2 sprays NA PRN PRN PRN Reason: Nasal Dryness/Congestion Stop: 10/12/20 18:50 Mental Health & Subst Abuse Tx Psychiatrist Name of Psychiatrist: Crystal Romero Psychiatrist's Date of Appointment with Psychiatrist: 09/22/20 Time of Appointment with Psychiatrist: 1pm Psychiatric Appointment Comment: [facility] [place] [address] Psychiatrist Release of Information: Obtained Therapist Name of Therapist: Crystal Menon Therapist's Date of Therapist Appointment: 09/29/20 Time of Therapist Appointment: 2pm Therapy Appointment Comment: [facility] [place] [address] Racking Machine Operator Name of Racking Machine Operator: Kayleigh Farrell Phone Number for Racking Machine Operator: [phone] Post Discharge Appointments Primary Care Physician Name Of Family Doctor: Vicky Romero Primary Care Date of Appointment with PCP: 10/22/20 Time of Appointment with PCP: 2:40pm Provider Appointment Comment: [id number], [address], [place] [address] Contact Information Discharge Discharge Address: [address] [place] [address] (1) Major depressive disorder with current active episode Major depression recurrence: recurrent Major depression episode severity: severe Psychotic features: without psychotic features Qualified Code(s): F33.2 - Major depressive disorder, recurrent severe without psychotic features
[2020-09-19] MEDS: QUEtiapine FUMARATE 25 MG TABLET PO SCH (21:27)
[2020-09-20] MEDS: hydrOXYzine HCl 25 MG TAB PO PRN (02:09)
[2020-09-20] MEDS: buPROPion XL 150 MG TABCR PO SCH (07:45)
[2020-09-20] MEDS: B12 PO SCH ×2 (07:45→21:22)
[2020-09-20] MEDS: ALGAL OIL PO SCH ×2 (07:45→21:22)
[2020-09-20] MEDS: clonazePAM 0.25 MG TAB PO SCH ×2 (07:45→21:20)
[2020-09-20] MEDS: LITHIUM CARBONATE 300 MG TAB PO SCH ×2 (07:45→21:21)
[2020-09-20] MEDS: LEVOTHYROXINE SODIUM 75 MCG TABLET PO SCH (07:45)
[2020-09-20] MEDS: LEVOMEFOLATE PO SCH ×2 (07:45→21:22)
[2020-09-20] MEDS: B6 PO SCH ×2 (07:45→21:22)
[2020-09-20] MEDS: metFORMIN HCL 500 MG TAB PO SCH ×2 (07:46→17:11)
--- NOTE | 2020-09-20 11:20 | Psychiatric Progress Note ---
Date of Service September 20, 2020 Impression / Recommendations Impression This is a 50-year-old woman presenting following a suicide attempt. Although the patient carries a diagnosis of bipolar disorder, her history as well as current status are not indicative of such. I believe that this patient has a mood disorder with significant mood lability that was worsened by amphetamine use. Diagnosis for now will be MDD. Patient does have a history of treatment resistance, thus justifying uses of medications such as antipsychotics as well as lithium and other mood stabilizers. (1) Major depressive disorder with current active episode: The patient [facility] on every 15 minute checks (behavioral with suicide precautions for safety. The patient will participate in group, recreational, and milieu therapies and will be offered additional individual and family sessions as clinically appropriate. 09/20/20-- Patient continues to do well on regimen, we will start discharge planning. 09/18/2020will augment patient's regimen with 0.25 Klonopin p.o. twice daily, will reinitiate Seroquel 50 nightly for sleep and restless legs. 09/17/2020atient's mood seems to have stabilized although she is still somewhat depressed. Will augment with antidepressant Wellbutrin 150 mg XL every morning starting tomorrow morning. 09/16/2020atient appears to be making incremental progress. Will hold lithium dose tonight and redraw level tomorrow morning. We will consider antidepressant dose tomorrow as well. 09/15/2020atient continues on lithium 750 p.o. twice daily. We will plan to do a level tomorrow morning. 09/14/2020atient to continue on lithium 750 mg p.o. twice daily. Plan to do a level in a couple of days. 09/13/2020atient's Adderall, Topamax, Geodon will be discontinued. Patient will be restarted on lithium as it has been shown to be effective for preventing suicide. Will reconsider use of antidepressant as patient begins to stabilize. Inventory Assets Strengths: Supportive family Needs: Insight Risk Factors Assessment Male: No : No Do You Have Access To A Gun?: No Health Problems: No Mental Health Diagnoses: Yes Substance Use Disorders: No Previous Attempt: Yes Family History of Suicide: No Previous Psychiatric Hospitalization: No Hopelessness: No Protective Factors Assessment : No Responsible for Young Children: No Employed: No Stable Relationships: Yes Supportive Family: Yes Interval History Chief Complaint "The cereal made me throw up but I am feeling better now". Review of Systems Sleep Information Total Hours of Sleep: 3.25 Sleep Comments: Pt reported poor sleep and did not feel that PRN Vistaril was very helpful. Meal Information Percent Meal Consumed - Breakfast: 50 Percent Meal Consumed - Lunch: 80 Percent Meal Consumed - Dinner: 80 Subjective Subjective Patient seen, chart reviewed and case discussed with treatment team, nursing and social work. Patient reports a good night of sleep and strong appetite. No side effects reported or observed. Regarding mood, patient reports some improvement which they attribute to the medications as well as the therapy they have received on the unit. I spent 30 minutes with the patient, 50% of which was dedicated to counselling and coordination of care. Physical Exam Psychiatric Orientation: alert and oriented x 3 Apperance: appropriately groomed Eye Contact: + fair eye contact Motor Behavior: no abnormal motor movements Speech: normal rate/rhythm/volume of speech Affect: + depressed affect and + tearful affect Mood: + depressed mood Thought Process: linear/logical thought process Thought Content: reality based without delusions Suicidal Thoughts: + reports suicidal thoughts Homicidal Thoughts: + reports homicidal thoughts Hallucinations: no auditory hallucinations and no gustatory hallucinations Cognition: remote memory grossly intact Estimated Intelligence: consistent with education level Insight: + poor insight Judgement: + fair judgement Vital Signs (Past 24 Hours) Last Vital Signs Temp 36.6 C 09/20/20 06:47 Pulse 72 09/20/20 06:48 Resp 16 09/20/20 06:47 BP 126/90 09/20/20 06:48 Pulse Ox 100 09/12/20 19:51 Results & Data ([facility]) Current Inpatient Medications Current Inpatient Medications: Current Inpatient Medications Acetaminophen (Acetaminophen 325 Mg Tab) 650 mg PO Q4H PRN PRN Reason: Headache or Minor Fever Stop: 10/12/20 18:50 Al Hydrox/Mg Hydrox/Simethicone (Aluminum/Magnesium Susp 30 Ml Udc) 30 ml PO Q4H PRN PRN Reason: GI Upset Stop: 10/12/20 18:50 Bismuth Subsalicylate (Bismuth Subsalicylate Liqd 236 Ml) 15 ml PO PRN PRN PRN Reason: Loose Stool Stop: 10/12/20 18:50 Bupropion HCl (Bupropion Xl 150 Mg Tabcr) 150 mg PO QAM ROCKY Stop: 10/18/20 08:59 Last Admin: 09/20/20 07:45 Dose: 150 mg Documented by: Clonazepam (Clonazepam 0.25 Mg Tab) 0.25 mg PO BID ROCKY Stop: 10/18/20 20:59 Last Admin: 09/20/20 07:45 Dose: 0.25 mg Documented by: Hydroxyzine HCl (Hydroxyzine Hcl 25 Mg Tab) 50 mg PO HSZ PRN PRN Reason: Insomnia Stop: 10/12/20 18:50 Last Admin: 09/20/20 02:09 Dose: 50 mg Documented by: Hydroxyzine HCl (Hydroxyzine Hcl 25 Mg Tab) 25 mg PO Q4H PRN PRN Reason: Anxiety Stop: 10/12/20 18:50 Levomefolate/Algal Oil (Levomefolate/B6/B12/Algal Oil) 1 ea PO BID ROCKY Stop: 10/19/20 08:59 Last Admin: 09/20/20 07:45 Dose: 1 ea Documented by: Levothyroxine Sodium (Levothyroxine Sodium 75 Mcg Tablet) 75 mcg PO DAILYBB ROCKY Stop: 10/13/20 10:59 Last Admin: 09/20/20 07:45 Dose: 75 mcg Documented by: [place] Carbonate ([place] Carbonate 300 Mg Tab) 600 mg PO BID ROCKY Stop: 10/17/20 20:59 Last Admin: 09/20/20 07:45 Dose: 600 mg Documented by: Magnesium Hydroxide (Magnesium Hydroxide Susp 30 Ml Udc) 30 ml PO DAILY PRN PRN Reason: Constipation Stop: 10/12/20 18:50 Last Admin: 09/15/20 17:51 Dose: 30 ml Documented by: Metformin HCl (Metformin Hcl 500 Mg Tab) 1,000 mg PO BIDM ROCKY Stop: 10/13/20 17:44 Last Admin: 09/20/20 07:46 Dose: 1,000 mg Documented by: Quetiapine Fumarate (Quetiapine Fumarate 25 Mg Tablet) 50 mg PO HS ROCKY Stop: 10/18/20 21:59 Last Admin: 09/19/20 21:27 Dose: 50 mg Documented by: Sodium Chloride (Sodium Chloride 0.65% Na Soln 45 Ml (Maury)) 1 - 2 sprays NA PRN PRN PRN Reason: Nasal Dryness/Congestion Stop: 10/12/20 18:50 Mental Health & Subst Abuse Tx Psychiatrist Name of Psychiatrist: Crystal Romero Psychiatrist's Date of Appointment with Psychiatrist: 09/22/20 Time of Appointment with Psychiatrist: 1pm Psychiatric Appointment Comment: [address] [place] [id number] Psychiatrist Release of Information: Obtained Therapist Name of Therapist: Crystal Menon Therapist's Date of Therapist Appointment: 09/29/20 Time of Therapist Appointment: 2pm Therapy Appointment Comment: [address] [place] [address], [place] [address] Food Service Worker Name of Food Service Worker: Kayleigh Farrell Phone Number for Food Service Worker: [phone] Post Discharge Appointments Primary Care Physician Name Of Family Doctor: Vicky Romero [facility] Date of Appointment with PCP: 10/22/20 Time of Appointment with PCP: 2:40pm Provider Appointment Comment: [address], [place] [address] Contact Information Discharge Discharge [address]: [address] [place] [phone] (1) Major depressive disorder with current active episode Major depression recurrence: recurrent Major depression episode severity: severe Psychotic features: without psychotic features Qualified Code(s): F33.2 - Major depressive disorder, recurrent severe without psychotic features
[2020-09-20] MEDS: QUEtiapine FUMARATE 25 MG TABLET PO SCH (21:20)
[2020-09-21] MEDS: clonazePAM 0.25 MG TAB PO SCH (08:25)
[2020-09-21] MEDS: buPROPion XL 150 MG TABCR PO SCH (08:25)
[2020-09-21] MEDS: B12 PO SCH (08:25)
[2020-09-21] MEDS: LEVOMEFOLATE PO SCH (08:25)
[2020-09-21] MEDS: LEVOTHYROXINE SODIUM 75 MCG TABLET PO SCH (08:25)
[2020-09-21] MEDS: B6 PO SCH (08:25)
[2020-09-21] MEDS: ALGAL OIL PO SCH (08:25)
[2020-09-21] MEDS: metFORMIN HCL 500 MG TAB PO SCH (08:26)
[2020-09-21] MEDS: LITHIUM CARBONATE 300 MG TAB PO SCH (08:26)
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
== END 2020-09-21 11:43 | disposition home or self-care (01) | DRG 885 ==
LOC: ED 10:08 → 3S 18:38